=== PATIENT | female | born 1995 | race Hispanic/Latino ===

== ENCOUNTER 2016-12-08 11:12 | Emergency (ER) | payer MEDICAID ==
[~2016-12-08] VITALS: Ht 139.7 cm; Wt 56.8 kg
[~2016-12-08 11:12] MED LIST: NOMED
[2016-12-08 11:21] VITALS: BP 102/71; PULSE 77; RESP 16; O2SAT 100
--- NOTE | 2016-12-08 11:44 | ED.REPORT ---
HPI-Abd Pain F Under 40 Date of Service Dec 08, 2016 ED Provider: Donaldo Garcia MD Jazmín is otherwise healthy 21-year-old female with a chief complaint of abdominal pain. She states it began about 4 days ago with heartburn and nausea , and then progress to a sensation of bloating and finally lower quadrant pain. Associated with fatigue, sweats, chills, diarrhea shortly after eating, headache. She complains of mid back pain has been present for approximately 5 months. She complains of urinary frequency but denies dysuria, hematuria. She also complains of a two-week history of creamy white vaginal discharge and dyspareunia but denies itching, burning, bleeding. History of cholecystectomy, chronic sinusitis, kidney stones. Denies fever, vomiting, melena, hematochezia ,chest pain, palpitations, dyspnea, shortness of breath, wheeze Nursing Notes Stated Complaint: ABDOMINAL PAIN,BACK PAIN,NAUSEA,HEADACHE Chief Complaint: Female Abdominal Pain Nursing Notes Reviewed: Yes Allergies: Uncoded Allergies: FISH (Allergy, Severe, facial and throat swelling, 03/30/14) Scheduled Doxycycline Hyclate (Doxycycline Hyclate) 100 Mg Capsule 100 MG PO BID Omeprazole (Omeprazole) 20 Mg Capsule.dr 20 MG PO DAILY Ondansetron ODT (Ondansetron ODT) 4 Mg Tab.rapdis 4-8 MG PO TID Miscellaneous Medications No Historical Medication (No Historical Medication) Ea General Time Seen by MD: 11:38 Chief Complaint Abdominal pain Review of Systems Review of Systems Note: Negative unless stated otherwise in history of present illness Physical Exam General: Well appearing, well developed, well nourished, no acute distress. Head: Atraumatic, normocephalic. Eyes: No scleral icterus or injection. No discharge. Vision grossly intact. ENT: Voice clear, hearing grossly intact. Respiratory: Regular rate and rhythm. Breath sounds present, clear to auscultation and equal bilaterally. No respiratory distress. No increased work of breathing, speaks in complete sentences. Cardiovascular: Regular rate and rhythm, without murmur, gallop or rub. No pedal edema. Gastrointestinal: Very mild tenderness in upper quadrants without guarding or rebound. Absolutely no tenderness in lower quadrants. Bowel sounds are hypoactive : Normal external genitalia without lesions. Slight creamy discharge noted. Cervix is a symmetrical without one to 2 cm friable lesion to the right of the os. Slight blood noted, creamy discharge emerging from os. Minimal cervical motion tenderness, adnexal tenderness. Adnexa not appreciated. Skin: Warm and dry. Neurological: Grossly nonfocal. Psychological: Alert and oriented. Speech appropriate, linear and logical. Behavior appropriate. Initial Vital Signs Vital Signs (First) Date Time Temp Pulse Resp B/P Pulse Ox O2 Delivery O2 Flow Rate FiO2 12/08/16 11:21 77 16 102/71 100 Room Air 12/08/16 15:14 36.8 Initial VS: Reviewed, Vital signs normal Interpretation & Diagnostics Interpretation & Diagnostics: Wet prep showed only a few white blood cells Lab Results Interpretation Result Diagram: 12/08/16 1255 12/08/16 1255 Test 12/08/16 11:30 12/08/16 12:55 12/08/16 13:23 Hold Urine Received (Received) White Blood Count 5.1th/mm3 (3.8-10.1) Red Blood Count 4.37mil/mm3 (3.90-5.20) Hemoglobin 13.1g/dL (12.0-15.6) Hematocrit 38.7% (35.0-46.0) Mean Corpuscular Volume 88.6fL (81-100) Mean Corpuscular Hemoglobin 30.0pg (27.0-35.0) Mean Corpuscular Hemoglobin Concent 33.9% (32.0-37.0) Red Cell Distribution Width 12.3% (12.3-15.4) Platelet Count 207bil/L (150-400) Neutrophils (%) (Auto) 56.7% (40-74) Lymphocytes (%) (Auto) 34.5% (14-46) Monocytes (%) (Auto) 5.7% (4-12) Eosinophils (%) (Auto) 2.7% (0-5) Basophils (%) (Auto) 0.2% (0-3) Sodium Level 137mEq/L (134-144) Potassium Level 4.0mEq/L (3.5-5.2) Chloride Level 101mEq/L (97-108) Carbon Dioxide Level 25mmol/L (18-29) Blood Urea Nitrogen 6mg/dL (6-20) Creatinine 0.58mg/dL (0.57-1.00) Estimat Glomerular Filtration Rate 188mL/min (>59) Glucose Level 60mg/dL (60-99) Calcium Level 8.3mg/dL (8.5-10.1) Total Bilirubin 0.3mg/dL (0.0-1.2) Aspartate Amino Transf (AST/SGOT) 25U/L (0-50) Alanine Aminotransferase (ALT/SGPT) 19U/L (0-32) Alkaline Phosphatase 80U/L (25-150) Total Protein 7.5g/dL (6.4-8.4) Albumin 4.3g/dL (3.4-5.0) Hold Branch Top Tube Received (Received) Re-Eval/Medical Decision Med Decision/Clinical Course Otherwise healthy 21-year-old female presents with somewhat vague complaints of abdominal pain. Reports 4 days ago she noticed heartburn and nausea which progressed to bloating and ultimately lower abdominal pain. She also complains of white vaginal discharge and dyspareunia. Physical examination her abdomen is only mildly tender in the upper quadrants and absolutely nontender in the lower quadrants. There is a 1-2 cm irregular friable mass on the right side of her cervix, and white discharge is noted. No significant cervical motion tenderness. test is negative, CBC and CMP are essentially normal. I discussed the case with Dr. garcia who met with and examine the patient. He confirmed atypical appearance of the cervix. We are concerned about possible cervical cancer. I discussed these findings with Dr. Olmstead who advised treating for pelvic inflammatory disease and follow-up with her next week. Provided ceftriaxone and prescription for doxycycline. At this point I have no concern for torsed ovary or ectopic . I discussed this with the patient answers all questions to the best of my ability. I stressed the importance of her following up with gynecology and assured her that she would be charged according to a sliding scale. Provided prescriptions for ondansetron, omeprazole. Provided return precautions Consultation : Referral / Consult Name: Get Olmstead MD Call Returned at: 13:27 Food Analyst: Will see in office Note: Discussed the case with Dr.Al mondragon, who recommends treating for PID with single dose of ceftriaxone and a course of doxycycline. She will see the patient in clinic next week. She also assures me they will work on a sliding scale. Discharge & Departure Primary Impression: Cervical mass Disposition: Home Discharge Condition All VS Reviewed: Yes Condition: Stable Additional Instructions: Evaluation for abdominal pain the emergency department. Not detected immediately dangerous cause of your nausea and heartburn such as a stomach ulcer. Skull exam is reassuring this is unlikely to be a ovarian torsion or an ovarian cyst. However pelvic examination reveals a mass on your cervix as well as some discharge. Discussed these findings with Dr Schreiber, our septic technician on-call. She recommended that we treat you for pelvic inflammatory disease and asked her to follow up with her next week. She assured me that they will work on a sliding scale so you should not worry about your ability to pay. As stated before, it is very important to go to this follow-up appointment, as there is a possibility that this is cancer. We have given you one dose of an antibiotic here in the emergency department. I also will give you a prescription for another antibiotic to be taken twice a day for the next 2 weeks. Take The entire 2 weeks worth of medications, even if you feel better. I will also give you a prescription for ondansetron (Zofran) for your nausea and a prescription for omeprazole to treat your heartburn. Please call Dr. Schreiber to arrange follow-up next week. I also recommend that you be seen by your primary care provider if your symptoms of heartburn and nausea do not resolve in a week or so. Return to emergency department for any new or worsening symptoms including increasing pain, fever, vomiting not controlled by medication. Referrals: Get Olmstead MD EDSupervising Provider for APC: Donaldo Garcia MD Attending Statment Attending attestation: I saw this patient in conjunction with Johnny Peterson PA-C. I was present for all dewey portions of the history taking and physical examination. I agree with the workup, evaluation, treatment and disposition. Donaldo Garcia MD copies to: Get Olmstead MD, Beck O MD Dec 08, 2016 11:44 Johnny Peterson PA-C Dec 08, 2016 12:20
[2016-12-08] MEDS ORDERED: 0.9% Sodium Chloride 1,000 ML IV ONE (12:13)
[2016-12-08] MEDS ORDERED: Pantoprazole 4 mg/mL 10 mL Inj IVPUSH ONE (12:15)
[2016-12-08 13:36] LABS: BASOPHILS % (AUTO) 0.2 % (0-3); EOSINOPHILS % (AUTO) 2.7 % (0-5); MONOCYTES % (AUTO) 5.7 % (4-12); Mean Corpuscular Volume 88.6 fL (81-100); NEUTROPHILS % (AUTO) 56.7 % (40-74); Platelet Count 207 bil/L (150-400)
[2016-12-08] MEDS ORDERED: DOXY100C2 PO (13:48)
[2016-12-08] MEDS ORDERED: OMEP20CA11 PO (13:48)
[2016-12-08] MEDS ORDERED: cefTRIAXone Inj 250 MG, Lidocaine PF 1% Inj 0.9 ML in Syringe 1 EACH IM ONE (13:50)
[2016-12-08 14:34] VITALS: BP 99/68; PULSE 74; RESP 16; O2SAT 100
[2016-12-08] MEDS ORDERED: ONDA4TAB12 PO (15:13)
[2016-12-08 15:14] VITALS: BP 106/69; PULSE 75; RESP 16; O2SAT 98
[2016-12-20] MEDS ORDERED: SULF1TAB7 PO (14:51)
[2016-12-20] MEDS ORDERED: HYDR-4003 PO (14:51)
== END 2016-12-08 15:15 | disposition home or self-care (01) ==
LOC: SED 11:12
DX: N88.8 Other specified noninflammatory disorders of cervix uteri (principal); J32.9 Chronic sinusitis, unspecified; Z90.49 Acquired absence of other specified parts of digestive tract; Z87.442 Personal history of urinary calculi
CPT/HCPCS: 80053; 81025; 85025; 87210; 87491; 87591; 96360; 96372; 99285; J0696

== ENCOUNTER 2016-12-21 13:09 | Inpatient (IN) | payer MEDICAID ==
[2016-12-21] VITALS (12 sets, daily range): BP systolic 114–136; BP diastolic 47–85; PULSE 60–121; RESP 10–21; O2SAT 99–100
[~2016-12-21] VITALS: Ht 142.2 cm; Wt 57.2 kg
[2016-12-21] MEDS: Lactated Ringer's 1,000 ML IV SCH ×5 (05:00→22:31)
[~2016-12-21 13:09] MED LIST changes: +CeFAZolin Inj 2 GM in IV Premix 1 EACH IV ONE; +HYDR-4003 PO; -NOMED; +SULF1TAB7 PO
[2016-12-21] MEDS ORDERED: CeFAZolin Inj 2 gm / 50mL D5W IV ONE (13:11)
[2016-12-21] MEDS ORDERED: Ketamine 10 mg/mL 20 mL Inj ONE (13:42)
[2016-12-21] MEDS ORDERED: fentaNYL-PF 50 mCg/mL 2 mL Inj ONE (13:42)
[2016-12-21] MEDS ORDERED: HYDROmorphone 2 mg/mL Inj ONE (13:42)
[2016-12-21] MEDS ORDERED: Dexamethasone 4 mg/mL Inj ONE (13:45)
[2016-12-21] MEDS ORDERED: EPHEDrine/NS 5 mg/mL 5 mL Syringe ONE (13:45)
[2016-12-21] MEDS ORDERED: Rocuronium 10 mg/mL 5 mL Inj ONE (13:45)
[2016-12-21] MEDS ORDERED: Glycopyrrolate 0.2 mg/mL 5 mL Inj ONE (13:45)
[2016-12-21] MEDS ORDERED: Neostigmine 1 mg/mL 5 mL Inj ONE (13:45)
[2016-12-21] MEDS ORDERED: Propofol 10,000 mCg/mL 20 mL Inj ONE (13:45)
[2016-12-21] MEDS ORDERED: Ondansetron 2 mg/mL 2 mL Inj ONE (13:45)
[2016-12-21] MEDS ORDERED: HYDROmorphone 1 mg/mL Inj IVPUSH PRN (18:30)
[2016-12-21] MEDS ORDERED: EPHEDrine Sulfate 50 mg/mL Inj IVPUSH PRN (18:30)
[2016-12-21] MEDS ORDERED: MetoCLOpramide 5 mg/mL 2 mL Inj IVPUSH PRN ×2 (18:30→21:10)
[2016-12-21] MEDS ORDERED: fentaNYL-PF 50 mCg/mL 2 mL Inj IVPUSH PRN (18:30)
[2016-12-21] MEDS ORDERED: Lactated Ringer's 500 ML IV PRN (18:30)
[2016-12-21] MEDS ORDERED: hydrALAZINE 20 mg/mL Inj IVPUSH PRN (18:30)
[2016-12-21] MEDS ORDERED: Lactated Ringer's 1,000 ML IV SCH (18:30)
[2016-12-21] MEDS ORDERED: Labetalol 5 mg/mL 4 mL Inj IV PRN (18:30)
[2016-12-21] MEDS ORDERED: Phenylephrine 10,000 mCg/mL Inj IVPUSH PRN (18:30)
[2016-12-21] MEDS ORDERED: Atropine 0.4 mg/mL Inj IVPUSH PRN (18:30)
[2016-12-21] MEDS ORDERED: Ondansetron 2 mg/mL 2 mL Inj IVPUSH PRN ×2 (18:30→21:10)
--- NOTE | 2016-12-21 18:30 | PCM.HPANE ---
Patient Data Surgeon Admitting Provider: Attending Provider:Jimmie Oneal MD Primary Care Physician:Dayne Other Provider:Eulogio Lucero Anesthesia Reason for Visit Left Ovarian Cyst Ht/WT & BMI Height (Feet): 4 Height (Inches): 8.00 Weight (Kilograms): 59.4 Body Mass Index 29.00 Allergies Uncoded Allergies: FISH (Allergy, Severe, facial and throat swelling, 03/30/14) Past Anesthesia History Anesthesia History: Denies:: Fam Anesthesia Reaction, Fam Malignant Hypertherm Diabetes History Hx Diabetes?: No MRSA MRSA: No Medications Hypertension Medication: No Home Meds Incl Beta Rafiq: No Reported Medications Hydrocodone-Acetaminophen 5-325 mg 1 Each Tablet1 Tablet PO Q6H PRN For Pain Ref 0 12/20/16 Sulfamethoxazole/Trimeth 800-160 mg (Bactrim DS)1 Each Tablet1 Tablet PO BID Ref 0 12/20/16 Discontinued Reported Medications No Historical Medication Ea 01/13/13 Discontinued Scripts Ondansetron ODT 4 Mg Tab.rapdis4-8 Mg PO TID NAUSEA #14 TABLET Prov:Johnny Peterson PA-C 12/08/16 Omeprazole 20 Mg Capsule.dr20 Mg PO DAILY #14 CAPSULE Ref 0 Prov:Johnny Peterson PA-C 12/08/16 Doxycycline Hyclate 100 Mg [id number] Mg PO BID #28 CAPSULE Prov:Johnny Peterson PA-C 12/08/16 History History of ENT Problems?: Yes HEENT History: Positive for:: Sinus Problem (,HX STREP THROAT) Hx of Heart Problems?: Yes Cardiovascular History: Positive for:: Chest Pain (LIKELY R/T GERD) Denies:: Congestive Heart Failure Heart Murmur Hypertension Other Cardiac History: HX ANEMIA Hx of Respiratory Problem?: No Respiratory History: Positive for:: Asthma Denies:: Tuberculosis Use of C-PAP Machine Hx Neurologic Problems?: Yes Neurological History: Positive for:: Dizziness (C/OF DIZZINESS) Hx of GI Problems?: Yes Gastrointestinal History: Positive for:: Gall Bladder Disease (S/P DEBBY) Gastroesphageal Reflux Hx of Problems?: Yes Genitourinary History: Positive for:: Urinary Tract Infection (HX OF) Other Pertinent History: C/OF FREQUENCY & DYSURIA Female Hx: Denies:: Currently (C/OF DYSPAREUNIA) Endometriosis Pelvic Inflammatory Problems with Breasts? Skin History: Positive for:: History Skin Disorders? (C/OF HAIR LOSS) Denies:: Pressure Ulcers Hx Musculoskeletal Problems?: Yes Musculoskeletal History: Denies:: Back Injury (C/OF BACK PAIN) Hx of Psycho/Social Problems?: No Hx Surgeries?: Yes (DEBBY) Hx Any Other Health Problems?: Yes Other History: Denies:: Cancer Endocrine Disease Hospitalization Thyroid Disease History Blood Transfusions: Denies:: Blood Transfusions Hx Diabetes: No Hx Alcohol Use: NoHx Substance Use: No Smoking Status: Never Smoker Have You Smoked inLast 12 mo: No Stop/Bang S-Snoring: Do You Snore Loudly: No T-Tired: feel tired, fatigued: No O-Obsered: Observed not breath: No P-Blood Pressure: treated: No B- Body Mass Index > 35 kg/m2: No A- Age over 50: No N- Neck Large Circumference: No G- Gender Male: No RENE Total Score: 0 RENE Risk Assessment: Low Risk, <3 Yes Risk Assessment Category Category 1A: Patient has history of documented sleep apnea, and HAS NOT received any narcotic, sedative or anesthesia administration during this stay. Category 1B: Patient has history of documented sleep apnea, and HAS received any narcotic , sedative or anesthesia administration during this stay Category 2: Patient has SUSPECTED Obstructive Sleep Apnea, and HAS received any narcotic , sedative or anesthesia administration during this stay. Category 3: Patient has SUSPECTED Obstructive Sleep Apnea and HAS NOT received narcotic, sedative or anesthesia administration during this stay. Category 4: Outpatient in Procedural Areas with known sleep apnea or who screen positive for High Risk via the STOP/BANG questionnaire. Exam Exam Vital Signs Vital Signs Date Time Temp Pulse Resp B/P Pulse Ox O2 Delivery O2 Flow Rate FiO2 12/21/16 13:36 36.5 60 16 114/63 100 Room Air General Appearance: Alert, Oriented X3, Cooperative, No Acute Distress HEENT/AIRWAY: MP 2 Lungs: Clear to Auscultation, Normal Air Movement Heart: Exam Unremarkable, Regular Rate/Rhythm, No Murmurs/Rubs/Gallops Meds/Labs/Diagnostics Admission Meds Current Medications Lactated Ringer's (Lr) 1,000 ml @ 120 mls/hr Q8H20M IV Last administered on t 13:57; Start 12/21/16 at 05:00; Stop 12/21/16 at 13:30; Status DC Plan Impression Patient chart reviewed, patient interviewed and anesthestic plan with risks, benefits, and alternatives discussed, and informed consent obtained. NPO Status: 12/20 AT 2100 ASA Physical Status: ASA2 Mod Systemic Disease Anesthetic Plan: GA Bene/Risks/Altern/Consents: Yes HP Complete Prior to Induction: Yes Alton Celaya MD Dec 21, 2016 16:39
[2016-12-21] MEDS ORDERED: Bupivacaine-MPF 0.5% 30 mL Inj INFILTRATE ONE (19:15)
[2016-12-21] MEDS ORDERED: Alum-Mag Hydrox-Simeth 30 mL Suspension PO PRN (21:10)
[2016-12-21] MEDS ORDERED: Senna-Docusate 8.6-50 mg Tablet PO PRN (21:10)
[2016-12-21 21:38] LABS: BFWBC 650 /mm3
[2016-12-21 21:39] LABS: MONOCYTES,BODY FLUID 84 %; OTHER CELLS,BODY FLUID 46
[2016-12-21] MEDS ORDERED: Lactated Ringer's 1,000 ML IV ONE (21:53)
--- NOTE | 2016-12-21 22:33 | NUR ---
POST OP: Pt. arrived from PACU via stretcher with 2 CLERICAL WAREHOUSE WORKER NURSES. Awake and responsive, tearful. Pt. is sad because she thinks she won't be able to have more babies. On arrival has IV LR from OR infusing which was dc'd by HOT KNIFE CUTTER. Upon arrival to [facility] Pt. got up and ambulated to the bathroom to void. Voided clear yellow urine without difficulty. Has lower abdomen pressure dressing which is CDI. Denies pain. All vss taken immediately on arrival. Started IVF LR at 125 ml/hr as per orders. Pt's family at her side spending the night. On going care.
[2016-12-21 22:37] LABS: BFWBC 0 /mm3
--- NOTE | 2016-12-21 23:43 | PCM.ANEP1 ---
Post Anesthesia Phase 1 PACU Phase 1 Assessment Date of Service: Dec 21, 2016 Vital Signs Vital Signs Date Time Temp Pulse Resp B/P Pulse Ox O2 Delivery O2 Flow Rate FiO2 12/21/16 22:15 36.7 121 18 126/79 100 Room Air 12/21/16 21:52 36.7 106 21 136/77 100 Room Air 12/21/16 21:45 98 15 129/84 100 Room Air 12/21/16 21:40 107 12 124/73 100 Room Air 12/21/16 21:35 108 16 120/85 100 Room Air 12/21/16 21:30 105 17 120/74 100 Room Air 12/21/16 21:25 100 10 133/77 99 Room Air 12/21/16 21:20 99 14 114/69 100 Simple Mask 9 12/21/16 21:15 99 13 121/67 100 Simple Mask 9 12/21/16 21:10 100 12 118/65 100 Simple Mask 9 12/21/16 21:06 36.2 106 11 116/47 100 Simple Mask 9 Anesthetic Administered: GA Level of Alertness: Awake, talking PATEL's with Equal Strength: Yes Pain: No Nausea or Vomiting: No Oxygen Delivery: Room Air Lungs: Clear to Auscultation, Normal Air Movement Dermatome Level: Full Sensation Stanton Briggs MD Dec 21, 2016 23:43
--- NOTE | 2016-12-21 23:43 | PCM.ANEP2 ---
Post Anesthesia Evaluation ASA/CMS Post Anesthesia Date of Service: Dec 21, 2016 VS in Patient's Normal Range?: Yes Resp Stable; Airway Patent?: Yes CV Function & Hydration Stable: Yes Mental Status Recovered?: Yes Pain control Satisfactory?: Yes N/V Control Satisfactory?: Yes Stanton Briggs MD Dec 21, 2016 23:43
[2016-12-22] VITALS (7 sets, daily range): BP systolic 80–109; BP diastolic 46–63; PULSE 78–127; RESP 14–20; O2SAT 97–99
[2016-12-22] MEDS: oxyCODONE-Acetamin 5-325 mg Tablet PO PRN ×3 (01:04→21:00)
--- NOTE | 2016-12-22 05:19 | OP ---
[address] [address] OPERATIVE REPORT PATIENT: HARPER DOUGLASS : 1995 MR#: [id number] ADMIT: 12/21/2016 JOB ID: [id number] DATE OF SURGERY: 12/21/2016 PROCEDURE: 1. Laparoscopy converted to open laparotomy. 2. Left ovarian cystectomy with left salpingo-oophorectomy. 3. Peritoneal washings. PREOPERATIVE DIAGNOSIS(ES): Left ovarian cyst. POSTOPERATIVE DIAGNOSIS(ES): Left ovarian cyst. SURGEON: Jimmie Oneal MD. SENIOR LINUX UNIX ENGINEER: Gwendolyn Shea MD. Dr. Shea's assistance was necessary to provide proper exposure, manipulation of the tissue, help with retraction and removal of left adnexal mass. ESTIMATED BLOOD LOSS: 200 mL. ESTIMATED URINE OUTPUT: 300 mL. FLUIDS: 1.5 L of Ringer lactate. COMPLICATIONS: None. FINDINGS: Large left ovarian cystic mass adherent to the ovary and left fallopian tube about 20 cm in diameter with clear yellowish fluid. Normal appearance of the right ovary and right fallopian tube. Normal appearance of the uterus. Normal cervix. Normal vagina. Normal perineum. DESCRIPTION OF PROCEDURE: The patient was brought to the operating room, where she underwent general anesthesia without difficulty. The patient was then placed in a dorsal lithotomy position using Garland stirrups. She was prepped and draped in usual surgical fashion. She received preoperative antibiotics. Time-out was performed verifying correct patient, correct procedure. Pelvic exam was performed on the patient. It was verified that she has a left adnexal mass that apparently has increased in the last couple of weeks from the results shown on ultrasound. Decision was made to proceed with laparoscopy at the beginning. The entry of the Veress needle was decided to be Hill point in left upper quadrant of the abdomen. Local Marcaine was injected 2 cm below the mid costal line below the left ribs. Veress needle was introduced. CO2 gas was insufflated and appropriate pneumoperitoneum was achieved. Veress needle was removed. A 5 mm incision was made in the skin and a 5-mm trocar was placed. Using a 30-degree scope, the abdomen and pelvis were reviewed, the patient was found to a big adnexal mass occupying the whole abdomen, about 20 cm in size. It was not possible to visualize other pelvic structures because of the size of the mass. The decision was made to proceed with open laparotomy. The trocar was removed from Hill point incision and it was reapproximated with 4-0 Monocryl. Using a scalpel, a Pfannenstiel skin incision was made and carried down to the underlying layer of rectus muscle fascia using Bovie. The rectus muscle fascia was incised in the midline with the Bovie and the incision was then laterally extended using Bovie and Gaming scissors. The lower aspect of the incision was grasped with two Nida clamps and the rectus muscle fascia with pyramidalis muscle were from the rectus muscle using Gaming scissors and Bovie. The upper aspect of the incision was grasped with two Nida clamps and the rectus muscle fascia was from the underlying rectus muscle using Bovie and moist laparotomy sponge. Using Karma clamps the rectus muscles were in the midline. The peritoneum was identified, tented up with two Karma clamps, and entered sharply with Metzenbaum scissors. The peritoneal incision was then laterally extended. The adnexal mass was visualized. It was too big to be removed and at this point, a 40-gauge Angiocath needle attached to the suctioning instrument was used to suction the fluid from the cyst. Part of it was sent for cytology. Peritoneal washings were done as well, and they were sent for cytology. There was no spill of the fluid from the cyst into the abdomen. When the volume of the cyst was removed by half, it was possible to mobilize it and remove it through the Pfannenstiel incision. Dissection was provided down to the pedicle of the cyst. It was clamped with two Gui clamps, transected, and removed intact from the abdomen and sent to Pathology. The area of the excision was reapproximated with 0 Vicryl. A total of six sutures were applied. The left fallopian tube was damaged. It was removed and sent to Pathology. The area of the excision was repaired with 3-0 Vicryl in a running, locking fashion. In order to achieve better hemostasis, FloSeal was used to control the oozing from the area. Surgicel was applied wrapping around the remaining left adnexa and left part of the uterus. An O'Ruben-O'Delarosa retractor was used to provide good exposure after removal of the cyst. All the pelvis was examined, no significant changes were discovered. The right fallopian tube and right ovary looked normal, as well as to the uterus. All laparotomy sponges and instruments were removed from the abdomen, and the count was correct x2. The O'Ruben-O'Delarosa retractor was removed. The rectus muscle fascia was reapproximated with 0 Vicryl. Four interrupted 3-0 Vicryl sutures were placed to reapproximate Melia fascia and subcuticular tissue. The skin was closed with robel. Hemostatic dressing was applied. Hulka uterine manipulator was removed from the vagina, and the patient was repositioned back into a supine position. She tolerated the procedure well and was transferred to the recovery room in a stable condition.
[2016-12-22] MEDS: Lactated Ringer's 1,000 ML IV SCH ×3 (06:32→21:10)
[2016-12-22] MEDS: Ketorolac 15 mg/mL Inj IVPUSH PRN ×2 (06:41→14:06)
[2016-12-22 07:08] LABS: BASOPHILS % (AUTO) 0.1 % (0-3); EOSINOPHILS % (AUTO) 0 % (0-5); MONOCYTES % (AUTO) 2.8 % (4-12); Mean Corpuscular Hemoglobin 30.4 pg (27.0-35.0); Mean Corpuscular Volume 87.8 fL (81-100); NEUTROPHILS % (AUTO) 92.9 % (40-74); Platelet Count 201 bil/L (150-400)
--- NOTE | 2016-12-22 07:38 | NUR ---
Voiding Patient up to bathroom independent, stand by assist. Patient A&Ox3. Vitals stable, but tachycardic. Patient states her pain level is a 7/10. Toradol and Percocet given for pain. Patient had nausea after PO medication. Patient was concerned about whether she would have to go home today and stated she didn't feel up to it.
[2016-12-22] MEDS: Senna-Docusate 8.6-50 mg Tablet PO SCH ×2 (09:04→21:00)
--- NOTE | 2016-12-22 10:30 | PROG NOTE ---
[address] [address] PROGRESS NOTE PATIENT: HARPER DOUGLASS : 1995 MR#: [id number] ADMIT: 12/21/2016 JOB ID: [id number] DATE: 12/22/2016 SUBJECTIVE: The patient had been having nausea and vomiting overnight. Did not tolerate any p.o. intake so far. Pain is controlled with Percocet and toradol. The patient looked lethargic this morning. Ins and outs for the last 8-hour shift is 948 in, 800 cc out. OBJECTIVE: Vital signs are 36.8 for temperature, pulse is 78, respirations are 14. Blood pressure is 80/46, will be checked again. Pulse ox 97% on room air. Heart is regular rate and rhythm. Positive S1, S2. Lungs clear to auscultation bilaterally. Abdomen: Appropriate tenderness around the incision. Nondistended abdomen. Positive bowel sounds. Lower extremities: No calf tenderness appreciated bilaterally. Perineum: No active bleeding. Incision is clean, dry, and intact with robel in place. H and H this morning are 11.7 and 33.8, platelets are 201, white blood count 11.2. ASSESSMENT AND PLAN: The patient is 21 years old, postoperative day #1, status post laparoscopy converted to laparotomy with left ovarian cystectomy and left salpingo-oophorectomy with peritoneal washings. Patient is afebrile with stable vital signs. Did not tolerate any p.o. intake yet. 1. Continue anti-emetics for nausea and vomiting and advance diet as tolerated. 2. continue pain control with Percocet and Toradol. Consider p.r.n. IV pain medications as needed. 3. Ambulate. 4. Discontinue IV fluids and measure p.o. intake. All the above discussed in details with the patient, as well as the patient's nurse. Anticipate discharge tomorrow. CRISTINE
--- NOTE | 2016-12-22 13:52 | NUR ---
Social Work- Initial Assessment Data: Pt is a 21 year old female admitted 12/21/16 for left ovarian cyst per H&P. Pt is followed by [facility] and has no PCP. SW met with pt and family at bedside to discuss discharge planning, SW role explained. Pt was alert and oriented x3. Pt resides in [place] in an apartment with her mother. Pt is independent at base, no DME, no HH or SNF history. Pt drives. Pt does not have LTC or VA benefits. SW educated pt regarding DPOA/Advance Directive and left paperwork to be completed by pt. Pt to discharge home with boyfriend to transport via POV. SW left phone number and plan on whiteboard. No anticipated discharge needs. SW will continue to follow. Assessment: Pt who is independent at base. Plan: Pt to discharge home with boyfriend to transport via POV. No anticipated discharge needs. SW will continue to follow. Arabella Bauer, FIBERGLASS LUGGAGE MOLDER
--- NOTE | 2016-12-22 19:43 | NUR ---
activity/pain Pt up SBA to bathroom, walked once in arce this shift. Pain tolerable with Toradol and PO Percocet No nausea this shift.
--- NOTE | 2016-12-22 23:08 | NUR ---
PAIN/ACTIVITY/GAS PAIN: Pt. resting in bed during assessment, reports abdominal pain as burning pain, requested pain medication. Medicated with Ibuprofen and 1 Percocet, encouraged to drink plenty of fluids and ambulate on the hallway to help get rid of some abdominal gas, also Pt's BP has been running borderline low and she is S.L, encouraged to drink fluids. She is voiding, no BM reported yet. Given more apple juice per her request. Pt got up and ambulated around the hallway with her boyfriend. Pt's mom and 3 y.o. daughter at her side. On going care.
[2016-12-23 00:39] VITALS: BP 99/57; PULSE 81; RESP 16; O2SAT 97
[2016-12-23 04:41] VITALS: BP 94/59; PULSE 62; RESP 16; O2SAT 97
[2016-12-23] MEDS: Lactated Ringer's 1,000 ML IV SCH ×3 (05:10→21:10)
[2016-12-23] MEDS: Senna-Docusate 8.6-50 mg Tablet PO SCH ×2 (08:06→21:32)
[2016-12-23] MEDS: oxyCODONE-Acetamin 5-325 mg Tablet PO PRN ×4 (08:53→21:33)
--- NOTE | 2016-12-23 10:40 | NUR ---
Social Work- Readiness for Discharge Data: EMR reviewed. Pt is on day 2 of hospitalization for left ovarian cyst per H&P. Pt is not medically stable, anticipate 1-2 more days. Pt to discharge home with boyfriend to transport via POV. No anticipated discharge needs. SW will continue to follow. Assessment: [place]. Plan: Pt to discharge home with boyfriend to transport via POV. No anticipated discharge needs. SW will continue to follow. HEATHER Berkowitz
[2016-12-23 12:38] LABS: BASOPHILS % (AUTO) 0.1 % (0-3); EOSINOPHILS % (AUTO) 1.7 % (0-5); Mean Corpuscular Hemoglobin 30.1 pg (27.0-35.0); Mean Corpuscular Volume 91.2 fL (81-100); NEUTROPHILS % (AUTO) 56.8 % (40-74); Platelet Count 163 bil/L (150-400)
[2016-12-23 14:48] VITALS: BP 98/63; PULSE 67; RESP 15; O2SAT 98
--- NOTE | 2016-12-23 16:44 | PROG NOTE ---
[address] [address] PROGRESS NOTE PATIENT: HARPER DOUGLASS : 1995 MR#: [id number] ADMIT: 12/21/2016 JOB ID: [id number] DATE: 12/23/2016 SUBJECTIVE: A 21-year-old female, postop day number two following exploratory laparotomy with left salpingo-oophorectomy for 20 cm ovarian cyst. Doing okay this a.m. She is still feeling moderately unwell. She has ambulated somewhat in the room but is not able to ambulate far due to dizziness and pain. She is tolerating clear liquids still with some nausea. She is passing flatus. She denies any vaginal bleeding. She is voiding without difficulty. Objectively, her temperature is 36.4, her pulse is 62, respiratory rate is 16. Her blood pressure is 94/59. Her blood pressures have been 90s to 100s over 50s to 60s and she is satting 97% on room air. In general, she is awake, alert, oriented. She is in no acute distress though she does appear fatigued. Her heart shows regular rate and rhythm. Her lungs are clear to auscultation bilaterally. Her abdomen is soft. It is appropriately tender. There is a minimal amount of distention present. Her incision is clean, dry, intact with her staple line in place. Her extremities show no tenderness or edema. LABORATORY DATA: From December 22, 2016, showed a white count 11.2, hemoglobin 11.7, platelet count of 201. ASSESSMENT AND PLAN: This is a 21-year-old female, postoperative day number one following a diagnostic laparoscopy converted to laparotomy with left ovarian salpingo-oophorectomy for a large ovarian cyst. She is stable. PLAN: At this point in time, she is stable postoperatively. She is having somewhat of a slow recovery and is continuing to have pain and some nausea. Her urine output is adequate and her hemoglobin was stable yesterday. We will plan to repeat a CBC today as she has some dizziness with ambulation and her blood pressures are moderately low, though her pulse is currently stable. At this point in time, I would recommend continuation of routine postoperative cares including advancing her diet as tolerated and continuing pain medication with oral pain medications. Plan will be for discharge home tomorrow with further improvement of her status. Discharge home today was offered to her as she is meeting all postoperative goals; however, she does not feel ready for this so will continue inpatient observation for now. CRISTINE
--- NOTE | 2016-12-23 19:31 | NUR ---
Pain Patient continues to have some pain to the operative site, patient states that ordered pain medication keeps pain within a tolerable level. Patient able to walk arce with family. Care is ongoing.
[2016-12-23 20:16] VITALS: BP 87/53; PULSE 68; RESP 16; O2SAT 96
--- NOTE | 2016-12-23 23:33 | NUR ---
PAIN/ACTIVITY: Pt. rated her pain at 7/10 two hr after taking 1 Percocet. Given 1 more Percocet and 600 mg of Motrin and prn stool softeners. Pt. has not have a BM since prior to admission. Advised to get up and ambulate on the hallway to help with motility. Encouraged to drink plenty of fluids. Gave ice water and apple juice to drink through the night. She ambulated around the hallway x1 before HS. Abdominal incision open to air with robel CDI. Family at her side. On going care.
[2016-12-24] MEDS: Lactated Ringer's 1,000 ML IV SCH (05:10)
[2016-12-24 05:29] VITALS: BP 94/62; PULSE 71; RESP 16; O2SAT 98
--- NOTE | 2016-12-24 08:31 | PCM.DIMED ---
Discharge Instructions Date of Service Dec 24, 2016 Dates of Hospitalization Dec 21, 2016 at 22:12 Diet No restrictions Activity No restrictions Call your provider Fever or Chills, Shortness of breath, Bleeding, Chest pain, Vomitting, Excessive diarrhea Patient Instructions Follow-up with PCP in: 2 weeks Jimmie Oneal MD Dec 24, 2016 08:31
--- NOTE | 2016-12-24 08:52 | DIS ---
[address] [address] DISCHARGE SUMMARY PATIENT: HARPER DOUGLASS : 1995 MR#: [id number] ADMIT: 12/21/2016 JOB ID: [id number] DIS: 12/24/2016 ADMITTING DIAGNOSIS: Left adnexal tumor. DISCHARGE DIAGNOSIS: Left adnexal tumor. HOSPITAL COURSE: The patient is a 21-year-old, 2, para 1, who was admitted to the hospital on December 21, 2016, for the surgery because of a large left adnexal mass. The patient had a diagnostic laparoscopy that was converted to laparotomy because of a 20 cm left ovarian tumor. The abdominal pelvic washings were sent to cytology. The content of the tumor was sent to cytology as well, the ovarian cyst was removed intact from the abdomen after drainage through the Angiocath needle together with the left ovary and left fallopian tube. The rest of the pelvis was unremarkable, the right adnexa was normal. The patient was kept in the hospital for postoperative day one and postoperative day two. She has been seen on December 22, 2016, was stable, afebrile, doing well. Her postoperative labs showed a stable white blood cell count of 7.2, hemoglobin 11.7, and platelet count of 201. Vitals were stable, the temperature was 36.4, blood pressure 94/59. The patient started ambulating on postoperative day one, was tolerating regular food well. On postoperative day two, December 23, 2016, she was stable, afebrile, tolerating regular food, ambulating. She was complaining of incisional pain. Pain medication was provided with Motrin and Percocet p.r.n. The dressing was removed, the robel were intact. The trocar skin entry incision in [place] was intact as well. On postoperative day three, the patient was examined. The abdomen was benign, nontender, nondistended. Vitals were stable. She did not have any significant postoperative complaints except of mild incisional pain. The robel were removed. The Steri-Strips were applied. There was a small area of skin separation in the middle of the wound about 1 cm to 1.5 cm in size, sterile dressing was applied to the area. The patient was sent home on postoperative day three in stable condition with instructions to follow up in the clinic for wound check in five days, on Wednesday, December 28, 2016. She was provided pain medications including Percocet 5/325 mg p.o. t.i.d. p.r.n., and Motrin 600 mg p.o. t.i.d. p.r.n. She was sent home on postoperative day three, December 24, 2016, with all discharge criteria met.
[2016-12-24] MEDS: Senna-Docusate 8.6-50 mg Tablet PO SCH (09:11)
--- NOTE | 2016-12-24 10:58 | NUR ---
Discharged Patient discharged home. IV DC'd and intact. Patch removed from behind (L) ear. Discharge instructions given with no questions. No RX sent with patient. Teaching material included sulfamethoxazole/trimethoprim, ibuprofen, oxycodone/acetaminophen, ondansetron, and ovarian cancer. Patient gathered all belongings. MACHINE PACKAGER escorted patient out via W/C.
--- NOTE | 2016-12-26 14:40 | PATH ---
SURGICAL PATHOLOGY Attending Physician:Jimmie Oneal MD CASE STATUS: Signed Out PATIENT NAME: HARPER DOUGLASS PID: [id number] : 1995 DATE COLLECTED:12/21/2016 00:00 SPECIMEN: 1: Ovary, Cyst, Non-Neoplastic 2: Fallopian Tube, Biopsy CLINICAL HISTORY: LEFT OVARIAN CYST 1). LEFT OVARY AND CYST 2) .LEFT FALLOPIAN TUBE FINAL DIAGNOSIS: 1. Left Ovarian Cyst: Immature teratoma, high-grade (grade III) (see microscopic description). 2. Left Fallopian Tube: No significant pathologic change. ICD10: C56.2 NOTE: This case was reviewed by Dr. Godwin Chino who agrees with the diagnosis. These results are telephoned to the office of Dr. Jimmie Oneal at 1410 on 12/26/2016. GROSS DESCRIPTION: The specimens are received in formalin, labeled with the patient's name, and sublabeled as the following: (1) L ovary & cyst; (2) L fallopian tube. (1) The specimen consists of an ovarian cyst (12.5 x 11.3 x 4.5 cm). The exterior surface is purple-pink smooth shiny and flat. The cyst contains bright red fluid. The lining is garcía with diffuse rubbery friable cysts. The wall is edematous and is up to 1.1 cm thick. Protruding from the wall is a conglomerate of various tissues (7.5 x 5.5 x 4.5 cm). No normal ovarian parenchyma is identified. Section code: (1A-1H) ovarian tissue, hobbies and crafts sales representative. (2) The specimen consists of a fimbriated fallopian tube (length-4.0 cm, diameter-0.5 cm). The serosa is purple-pink smooth and shiny. The lumen is myers and unremarkable. The nodules, masses or lesions are identified. Section code: (2A) fallopian tube, serially sectioned, hobbies and crafts sales representative; (2B) fimbria, bivalved, entirely submitted. 12/25/16 JM MICRO DESCRIPTION: Sections from part 1 are of a left ovarian cyst. This is clearly a teratoma with mature teratomatous elements which include areas of mature forms of epithelium including respiratory epithelium with bronchial glands, skin including appendages, as well as areas of fat, fibrous tissue, cartilage tissue and bone. These mature elements, however, are a very minor portion of this tumor. The bulk of the tumor consists of neural tissue, much of which is immature. These immature areas include a background of glial tissue within which there are numerous sheets of immature neuroepithelial cells. Some of these immature cells form distinct rosettes. The fact that this immature component predominates within this lesion leads one to conclude that this is an immature teratoma. The amount of immature neural epithelial elements is of sufficient quantity to consider it to be high-grade (grade 3). Many areas show immature elements in greater than 4 low-power mcgee per slide. Sections from part 2 are of fallopian tube. There is some evidence of epithelial hyperplasia however, there is no significant atypia. The fallopian tubes are otherwise unremarkable. ICD-9 CODES: CPT CODES: 1: 82308 2: 06947 PROCEDURE/ADDENDA: Addendum SPI Addendum Diagnosis Slides reviewed at [facility] Pathology by Dr. Joe Martinez Left ovarian cyst, excision: Immature teratoma, WHO grade II of III (see comment). Left fallopian tube, salpingectomy: Fallopian tube, negative for neoplasm. Comment: As per the outside report gross description the left ovarian cyst measures 12.5 cm in the greatest dimension. Microscopically, there are numerous mature teratomatous elements including squamous epithelium, adnexal structures, bone, respiratory-type epithelium, and cartilage. In addition, there are extensive amounts of neural tissue, with a spectrum of differentiation. While some areas are definitively immature as identified by spindled hyperchromatic cells arranged in rosettes, other areas have a mature/differentiated appearance. The grading of immature teratomas is subjective, and requires quantifying the amount or primitive neuroectoderm in 40x mcgee (10x ocular with a 4x objective) on one slide, but is otherwise nor well-defined. We feel that outside slide 1D contains the most clearly defined primitive neuroectodermal components, and therefore, estimate the involvement of three 40x mcgee, which qualifies as WHO grade II of III. Dr. Jazmyne Alford has reviewed hobbies and crafts sales representative slides and agrees with the diagnosis of immature teratoma WHO grade II of III. Addendum Comment Please see [facility] Pathology Report [id number] for complete details. Electronically Signed Out Oscar Adams MD Electronically Signed Out Oscar Adams MD [facility] [address], [place] [address] Technical component performed at [facility], [facility] [address], [address]
== END 2016-12-24 10:57 | disposition home or self-care (01) | DRG 738 ==
LOC: SAS 13:09 → OSC 22:12
PROVIDERS: ADMIT Legal Medicine; ATTEND Legal Medicine
PROC: 0UT60ZZ Resection of Left Fallopian Tube, Open Approach (ICD-10-PCS; 2016-12-21)
PROC: 0UB10ZZ Excision of Left Ovary, Open Approach (ICD-10-PCS; principal; 2016-12-21 14:45)
DX: C56.2 Malignant neoplasm of left ovary (principal); K21.9 Gastro-esophageal reflux disease without esophagitis; N83.202 Unspecified ovarian cyst, left side; Z53.31 Laparoscopic surgical procedure converted to open procedure